=== PATIENT | female | born 1995 ===

== ENCOUNTER → 2018-03-16 | Outpatient (CLI) | payer SELFPAY ==
[2018-03-16 17:26] LABS: ABSOLUTE EOSINOPHILS # (AUTO) 0.2 10^3/uL (0.0-0.6); ABSOLUTE MONOCYTES (AUTO) 0.5 10^3/uL (0.1-1.4); ABSOLUTE NEUT (AUTO) 2.2 10^3/uL (1.7-8.2); BASOPHILS % (AUTO) 0.7 % (0-2); EOSINOPHILS % (AUTO) 4.7 % (0-6); HEMATOCRIT 38.4 % (36.0-47.0); HEMOGLOBIN 12.9 g/dL (12.0-15.5); LYMPHOCYTES % (AUTO) 40.7 % (13-45); MEAN CORPUSCULAR HEMOGLOBIN 29.5 pg (27.0-33.4); MEAN CORPUSCULAR HGB CONC 33.7 g/dL (32.0-36.0); MEAN CORPUSCULAR VOLUME 88 fl (80-97); MONOCYTES % (AUTO) 9.7 % (3-13); PLATELET COUNT 307 10^3/uL (150-450); RED BLOOD COUNT 4.38 10^6/uL (3.72-5.28); RED CELL DISTRIBUTION WIDTH 13.2 % (11.5-14.0); SEGMENTED NEUTROPHILS % (AUTO) 44.2 % (42-78); TOTAL CELLS COUNTED % (AUTO) 100 %; WHITE BLOOD COUNT 4.9 10^3/uL (4.0-10.5)
[2018-03-16 17:30] LABS: ALANINE AMINOTRANSFERASE 66 U/L (9-52); ALBUMIN 4.3 g/dL (3.5-5.0); ALKALINE PHOSPHATASE 52 U/L (38-126); ANION GAP 12 (5-19); ASPARTATE AMINO TRANSFERASE 63 U/L (14-36); BILIRUBIN,DIRECT 0.2 mg/dL (0.0-0.4); BILIRUBIN,TOTAL 0.3 mg/dL (0.2-1.3); BLOOD UREA NITROGEN 9 mg/dL (7-20); CALCIUM 9.6 mg/dL (8.4-10.2); CARBON DIOXIDE 28 mmol/L (22-30); CHLORIDE 103 mmol/L (98-107); GLUCOSE 90 mg/dL (75-110); POTASSIUM 4.2 mmol/L (3.6-5.0); SODIUM 142.9 mmol/L (137-145); TOTAL PROTEIN 7.3 g/dL (6.3-8.2)
[2018-03-16 17:46] LABS: FREE T4 (FREE THYROXINE) 1.34 ng/dL (0.78-2.19)
[2018-03-16 18:00] LABS: THYROID STIMULATING HORMONE 1.82 uIU/mL (0.47-4.68)
== END ==
LOC: LAB 16:55
PROVIDERS: ATTEND Physician Assistant Surgical
DX: K59.01 Slow transit constipation (principal); K62.5 Hemorrhage of anus and rectum
CPT/HCPCS: 36415; 80053; 84439; 84443; 85025

== ENCOUNTER → 2018-03-23 | Outpatient (CLI) | payer OTHER ==
[2018-03-23 11:31] LABS: IRON(TIBC) 45.8 ug/dL (37-170)
[2018-03-23 12:07] LABS: FERRITIN 9.86 ng/mL (6.2-137.0)
[2018-03-24 07:45] LABS: CERULOPLASMIN 19.1 mg/dL (19.0-39.0)
[2018-03-24 14:40] LABS: HEPATITIS B CORE AB IGM Negative (Negative); HEPATITIS B CORE AB TOT Negative (Negative); HEPATITIS BE AB Negative (Negative); HEPATITIS BE ANTIGEN Negative (Negative); HEPATITIS C VIRUS AB <0.1 s/co ratio (0.0-0.9); HEPATITS B SURFACE ANTIGEN Negative (Negative)
[2018-03-25 07:43] LABS: ACTIN (SMOOTH MUSCLE) ANTIBODY 13 Units (0-19); HEPATITIS B SURFACE AB QUAL Non Reactive (.); MITOCHONDRIAL (M2) ANTIBODY 11.6 Units (0.0-20.0)
== END ==
LOC: LAB 10:39
PROVIDERS: ATTEND Physician Assistant Surgical
DX: R94.5 Abnormal results of liver function studies (principal)
CPT/HCPCS: 36415; 82390; 82728; 83540; 83550; 86038; 86235; 86256; 86704; 86705; 86706; 86707; 86803; 87340; 87350